=== PATIENT | male | born 1960 | race Caucasian/White ===

== ENCOUNTER 2022-11-25 11:21 | Day surgery (SDC) | payer OTHER ==
[2022-11-15 10:23] VITALS: BMI 26.6
[2022-11-25] MEDS ORDERED: PROPOFOL 20 ML ONE (12:18)
[2022-11-25] MEDS ORDERED: Lidocaine 1% PF 5 ML VIAL ONE (12:28)
[2022-11-25] MEDS ORDERED: Glycopyrrolate 0.2 MG/ML 5 ML SYRINGE ONE (12:30)
== END 2022-11-25 13:41 | disposition home or self-care (01) ==
LOC: CSHSDC 11:21
PROVIDERS: ATTEND Internal Medicine Gastroenterology
PROC: 0D758ZZ Dilation of Esophagus, Via Natural or Artificial Opening Endoscopic (ICD-10-PCS; principal; 2022-11-25)
DX: R13.10 Dysphagia, unspecified (principal); K22.2 Esophageal obstruction; I10 Essential (primary) hypertension; E78.5 Hyperlipidemia, unspecified; F41.8 Other specified anxiety disorders; Z79.899 Other long term (current) drug therapy
CPT/HCPCS: 74330; J2704